=== PATIENT | female | born 1985 | race American Indian/Alaskan Native ===

== ENCOUNTER 2017-01-07 05:19 | Inpatient (IN) | payer MEDICAID ==
[2017-01-07] MEDS ORDERED: SUBLIMAZE IV PRN (06:24)
[2017-01-07] MEDS ORDERED: MINERAL OIL PO PRN (06:24)
[2017-01-07] MEDS ORDERED: ePHEDrine SULFATE IV PRN (06:24)
[2017-01-07] MEDS ORDERED: BRETHINE IVP PRN (06:24)
[2017-01-07] MEDS ORDERED: XYLOCAINE 2% INFILTRATI ONE (06:24)
[2017-01-07] MEDS ORDERED: BRETHINE SUB-Q PRN (06:24)
[2017-01-07] MEDS ORDERED: ZOFRAN IV PRN (06:24)
[2017-01-07] MEDS ORDERED: LACTATED RINGERS 1,000 ML ONE (06:29)
--- NOTE | 2017-01-07 06:35 | History and Physical Report ---
History of Present Illness Date of examination: 01/07/17 ( in active labor) History of present illness: EDC Confirmation: 01/18/2017 Gestational Age: 6 1/7 weeks Past History : 3 Term Births: 2 Premature Births: 0 Living Children: 2 Para: 2 Mult. Births: 0 Prev : 0 Prev. attempt? 0 Aborta: 0 Elect. Ab: 0 Spont. Ab: 0 Ectopics: 0 # 1 Delivery date: 10/27/2006 Weeks Gestation: 40 labor: no Delivery type: Hours of labor: 12 Anesthesia type: epidural Delivery location: [facility] Infant Sex: Male weight: 8-10 Name: Vladimir # 2 Delivery date: 07/20/2015 Weeks Gestation: 39+0 labor: no Delivery type: Vaginal Hours of labor: 8 Anesthesia type: epidural Delivery location: [facility] Sex: male weight: 9.19 Name: Ney Comments: none Past Medical History: Reviewed history from 01/03/2015 and no changes required: Negative Past Medical History Past Surgical History: Reviewed history from 01/03/2015 and no changes required: Tonsillectomy Family History Summary: Reviewed history and no changes required: 06/10/2016 Daughter (biol.) - Has Family History of Hypertension - Please disregard relationships chosen - Entered On: 01/03/2015 Daughter (biol.) - Has No Family History of Breast Cancer - Please disregard relationships chosen - Entered On: 01/03/2015 Daughter (biol.) - Has No Family History of Colon Cancer - Please disregard relationships chosen - Entered On: 01/03/2015 Daughter (biol.) - Has No Family History of Diabetes - Please disregard relationships chosen - Entered On: 01/03/2015 Daughter (biol.) - Has No Family History of Ovarvian Cancer - Please disregard relationships chosen - Entered On: 01/03/2015 Social History: unemployed Patient is Risk Factors: Smoked Tobacco Use: Never smoker Passive smoke exposure: no Drug use: no HIV high-risk behavior: low risk Alcohol use: no Past Medical History Abnormal PAP: positive Uterine Anomaly: positive, myomas Social Hx: unemployed Patient is Infection History Hx of STD: chlamydia HIV Risk Eval: low risk Hepatitis B Risk Eval: low risk Personal hx. of genital herpes: no Partner hx. of genital herpes: no Genetic History Congenital Heart Defect: Mom: no Dad: no Jay Disease: Mom: no Dad: no Thalassemia Mom: no Dad: no Neural Tube Defect Mom: no Dad: no Down's Syndrome Mom: no Dad: no Abimael-Sachs Mom: no Dad: no Sickle Cell Disease/Trait Mom: no Dad: no Hemophilia Mom: no Dad: no Muscular Dystrophy Mom: no Dad: no Cystic Fibrosis Mom: no Dad: no Justino Chorea Mom: no Dad: no Mental Retardation Mom: no Dad: no Fragile X Mom: no Dad: no Other Genetic/Chromosomal Disorder Mom: no Dad: no Child w/other defect Mom: no Dad: no Enviromental Exposures Xray Exposure: no Medication, drug, or alcohol use since LMP: no Chemical/Other Exposure: no Exposure to Cat Liter: no Hx of Parvovirus (Fifth Disease): no Active Medications (reviewed today): VITAMINS () Current Allergies (reviewed today): No known allergies Laboratory Results Date/Time Collected: 05/26/2016 Routine Urinalysis Color: yellow Appearance: clear Leukocytes: negative Nitrite: negative Urobilinogen: negative Protein: negative Blood: negative Ketone: negative Bilirubin: negative Glucose: negative Urine HCG: positive Review of Systems General Complains of fatigue. Denies fever, chills, sweats, anorexia, weakness, malaise, weight loss and sleep disorder. Complains of pelvic pain. Denies vaginal discharge, incontinence, dysuria, hematuria, urinary frequency, amenorrhea, menorrhagia, abnormal vaginal bleeding, genital sores, decreased libido, painful periods, painful sex, urinary urgency, hot flashes, vaginal dryness, vaginal itching and vaginal odor. CV Denies chest pains, palpitations, syncope, dyspnea on exertion, orthopnea, PND and peripheral edema. Resp Denies cough, dyspnea at rest, excessive sputum, hemoptysis, wheezing and pleurisy. GI Denies nausea, vomiting, diarrhea, constipation, change in bowel habits, abdominal pain, melena, hematochezia, jaundice, gas/bloating, indigestion/ heartburn, dysphagia and odynophagia. Breast Complains of breast pain. Denies left breast lump, right breast lump, nipple discharge, bloody discharge from nipple, abnormal mammogram and breast enlargement. Psych Denies depression, anxiety, irritability and mood swings. PHYSICAL EXAM HEENT: normocephalic, no lesions or deformities .Tatoo(s) are present Neck/Thyroid: supple, thyroid normal Skin no abnormal lesions or rashes .Tatoo(s) are present Chest: respiratory effort normal, lungs clear to auscultation Breasts: normal without skin changes or masses .Tatoo(s) are present CV: regular, normal S1-S2, no murmur, no rub, no gallop Abdomen: normal bowel sounds; soft, nontender .Tatoo(s) are present Musculoskeletal: grossly normal ROM in joints, no joint tenderness or muscle weakness Neuro: no gross anomalities Extremities: no clubbing, cyanosis, or edema .Tatoo(s) are present 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 No evidence of cystocele or rectocele. Cervix: normal appearance, no lesions, no discharge Uterus: enlarged uterus 8 - 10 weeks size Adnexae: no masses or tenderness Rectovaginal: exam defered Past History - Obstetrical History Expected Date of Delivery: 01/18/17 Actual Gestation: 38 Week(s) 3 Day(s) : 3 Para: 2 Hx # Term Pregnancies: 2 Number of Living Children: 2 Medications and Allergies Allergies Allergy/AdvReac Type Severity Reaction Status Date / Time No Known Allergies Allergy Verified 07/20/15 05:16 Home Medications Medication Instructions Recorded Confirmed Last Taken Type Neomy/Polymyx B/Hc Otic Susp 4 drops AD TID #1 bottle 04/28/15 07/22/15 Unknown Rx [Cortisporin (Otic) Susp] Lidocain2.5%/Prilocai2.5% [Emla] 5 gm TP ONCE PRN #1 tube 07/21/15 Unknown Rx Active Meds: Active Medications Ephedrine Sulfate (Ephedrine Sulfate) 10 mg IV Q2M PRN PRN Reason: Hypotension Stop: 01/07/17 06:29 Fentanyl (Sublimaze) 100 mcg IV Q2H PRN PRN Reason: Labor Pain Lactated Ringer's (Lactated Ringers) 1,000 mls @ 125 mls/hr IV DIRECT WILSON Oxytocin/Sodium Chloride (Pitocin/Ns 20 Unit/1000ml Drip) 20 units in 1,000 mls @ 125 mls/hr IV DIRECT WILSON Oxytocin/Sodium Chloride (Pitocin/Ns 30 Unit/500ml) 30 units in 500 mls @ 4 mls /hr IV TITR WILSON PRN Reason: Protocol Lidocaine (Xylocaine 2%) 20 ml INFILTRATI ONCE ONE Stop: 01/07/17 06:25 Mineral Oil (Mineral Oil) 30 ml PO QHS PRN PRN Reason: Constipation Ondansetron HCl (Zofran) 4 mg IV Q8H PRN PRN Reason: Nausea And Vomiting Terbutaline Sulfate (Brethine) 0.25 mg SUB-Q ONCE PRN PRN Reason: Hyperstimulation/Hypertonicity Stop: 01/07/17 06:25 Terbutaline Sulfate (Brethine) 0.25 mg IVP ONCE PRN PRN Reason: Hyperstimulation/Hypertonicity Stop: 01/07/17 06:25 - Vital Signs Vital signs: Vital Signs Pulse Pulse Ox 92 H 98 01/07/17 05:43 01/07/17 05:43 Temp Pulse Resp BP Pulse Ox 87 123/78 92 01/07/17 06:01 01/07/17 05:45 01/07/17 06:01 - Physical Exam Breasts: Positive: deferred Cardiovascular: Regular rate, Normal S1, Normal S2 Lungs: Positive: Normal air movement Abdomen: Positive: normal appearance, soft, normal bowel sounds. Negative: distention, tenderness Genitourinary (Female): Positive: normal perenium Vulva: both: normal Vagina: Positive: normal moisture. Negative: discharge Cervix: Negative: lesion, discharge Uterus: Positive: normal size, normal contour Adnexa: both: normal Anus/Rectum: Positive: normal perianal skin, heme negative. Negative: rectal mass, hemorrhoids Extremities: Positive: edema Deep Tendon Reflex Grade: Normal +2 - Obstetrical FHR: category 1 Uterine Contraction Monitor Mode: External Uterine Contraction Pattern: Regular Uterine Contraction Intensity: Moderate Results All other labs normal Strep Gp B CLAUDETTE Negative HBsAg Screen Negative Negative *1 Rubella Antibodies, IgG 2.44 index Immune >0.99 *2 Non-immune <0.90 Equivocal 0.90 - 0.99 Immune >0.99 ABO Grouping B *3 Rh Factor Positive *4 Please note: Prior records for this patient's ABO / Rh type are not available for additional verification. Antibody Screen Negative Negative *5 RPR Non Reactive Non Reactive *6 WBC 6.8 x10E3/uL 3.4-10.8 *7 RBC 4.32 x10E6/uL 3.77-5.28 *8 Hemoglobin 11.8 g/dL 11.1-15.9 *9 Hematocrit 38.3 % 34.0-46.6 *10 MCV 89 fL 79-97 *11 MCH 27.3 pg 26.6-33.0 *12 MCHC [L] 30.8 g/dL 31.5-35.7 *13 RDW 14.1 % 12.3-15.4 *14 Platelets 347 x10E3/uL 150-379 *15 Neutrophils 64 % *16 Lymphs 26 % *17 Monocytes 8 % *18 Eos 2 % *19 Basos 0 % *20 ! Immature Cells <No Reported Value> *21 Neutrophils (Absolute) 4.3 x10E3/uL 1.4-7.0 *22 Lymphs (Absolute) 1.8 x10E3/uL 0.7-3.1 *23 Monocytes(Absolute) 0.5 x10E3/uL 0.1-0.9 *24 Eos (Absolute) 0.1 x10E3/uL 0.0-0.4 *25 Baso (Absolute) 0.0 x10E3/uL 0.0-0.2 *26 ! Immature Granulocytes 0 % *27 ! Immature Grans (Abs) 0.0 x10E3/uL 0.0-0.1 *28 ! NRBC <No Reported Value> *29 Hematology Comments: <No Reported Value> *30 Tests: (2) Cystic Fibrosis Profile (637258) ! CF, Screen Comment: *31 RESULTS: Negative for 32 mutations analyzed Tests: (3) HB Solu + Rflx Fra (742707) Hemoglobin (Hgb) Solubility Negative Negative *33 Tests: (4) Panel 772285 (800822) HIV Screen 4th Generation wRfx Non Reactive Non Reactive *34 Tests: (5) HCV Ab w/Rflx to Verification ([id number]) ! HCV Ab <0.1 s/co ratio 0.0-0.9 *35 Tests: (6) Comment: ([id number]) ! Comment: SPRCS *36 Non reactive HCV antibody screen is consistent with no HCV infection, unless recent infection is suspected or other evidence exists to indicate HCV infection. Assessment and Plan 31yo @ 38 weeks in active labor GDM Insulin control; Polyhydramnios; GBS negative. Orders in EMR. Anticipate delivery.
--- NOTE | 2017-01-07 06:42 | Progress Note ---
Assessment and Plan anticipate delivery Subjective - Subjective Date of service: 01/07/17 Interval history: EDC Confirmation: 01/18/2017 Gestational Age: 6 1/7 weeks Past History : 3 Term Births: 2 Premature Births: 0 Living Children: 2 Para: 2 Mult. Births: 0 Prev : 0 Prev. attempt? 0 Aborta: 0 Elect. Ab: 0 Spont. Ab: 0 Ectopics: 0 # 1 Delivery date: 10/27/2006 Weeks Gestation: 40 labor: no Delivery type: Hours of labor: 12 Anesthesia type: epidural Delivery location: [facility] Sex: Male weight: 8-10 Name: Vladimir # 2 Delivery date: 07/20/2015 Weeks Gestation: 39+0 labor: no Delivery type: Vaginal Hours of labor: 8 Anesthesia type: epidural Delivery location: [facility] Infant Sex: male weight: 9.19 Name: Ney Comments: none Past Medical History: Reviewed history from 01/03/2015 and no changes required: Negative Past Medical History Past Surgical History: Reviewed history from 01/03/2015 and no changes required: Tonsillectomy Family History Summary: Reviewed history and no changes required: 06/10/2016 Daughter (biol.) - Has Family History of Hypertension - Please disregard relationships chosen - Entered On: 01/03/2015 Daughter (biol.) - Has No Family History of Breast Cancer - Please disregard relationships chosen - Entered On: 01/03/2015 Daughter (biol.) - Has No Family History of Colon Cancer - Please disregard relationships chosen - Entered On: 01/03/2015 Daughter (biol.) - Has No Family History of Diabetes - Please disregard relationships chosen - Entered On: 01/03/2015 Daughter (biol.) - Has No Family History of Ovarvian Cancer - Please disregard relationships chosen - Entered On: 01/03/2015 Social History: unemployed Patient is Risk Factors: Smoked Tobacco Use: Never smoker Passive smoke exposure: no Drug use: no HIV high-risk behavior: low risk Alcohol use: no Past Medical History Abnormal PAP: positive Uterine Anomaly: positive, myomas Social Hx: unemployed Patient is Infection History Hx of STD: chlamydia HIV Risk Eval: low risk Hepatitis B Risk Eval: low risk Personal hx. of genital herpes: no Partner hx. of genital herpes: no Genetic History Congenital Heart Defect: Mom: no Dad: no Jay Disease: Mom: no Dad: no Thalassemia Mom: no Dad: no Neural Tube Defect Mom: no Dad: no Down's Syndrome Mom: no Dad: no Abimael-Sachs Mom: no Dad: no Sickle Cell Disease/Trait Mom: no Dad: no Hemophilia Mom: no Dad: no Muscular Dystrophy Mom: no Dad: no Cystic Fibrosis Mom: no Dad: no Justino Chorea Mom: no Dad: no Mental Retardation Mom: no Dad: no Fragile X Mom: no Dad: no Other Genetic/Chromosomal Disorder Mom: no Dad: no Child w/other defect Mom: no Dad: no Enviromental Exposures Xray Exposure: no Medication, drug, or alcohol use since LMP: no Chemical/Other Exposure: no Exposure to Cat Liter: no Hx of Parvovirus (Fifth Disease): no Active Medications (reviewed today): VITAMINS () Current Allergies (reviewed today): No known allergies Laboratory Results Date/Time Collected: 05/26/2016 Routine Urinalysis Color: yellow Appearance: clear Leukocytes: negative Nitrite: negative Urobilinogen: negative Protein: negative Blood: negative Ketone: negative Bilirubin: negative Glucose: negative Urine HCG: positive Review of Systems General Complains of fatigue. Denies fever, chills, sweats, anorexia, weakness, malaise, weight loss and sleep disorder. Complains of pelvic pain. Denies vaginal discharge, incontinence, dysuria, hematuria, urinary frequency, amenorrhea, menorrhagia, abnormal vaginal bleeding, genital sores, decreased libido, painful periods, painful sex, urinary urgency, hot flashes, vaginal dryness, vaginal itching and vaginal odor. CV Denies chest pains, palpitations, syncope, dyspnea on exertion, orthopnea, PND and peripheral edema. Resp Denies cough, dyspnea at rest, excessive sputum, hemoptysis, wheezing and pleurisy. GI Denies nausea, vomiting, diarrhea, constipation, change in bowel habits, abdominal pain, melena, hematochezia, jaundice, gas/bloating, indigestion/ heartburn, dysphagia and odynophagia. Breast Complains of breast pain. Denies left breast lump, right breast lump, nipple discharge, bloody discharge from nipple, abnormal mammogram and breast enlargement. Psych Denies depression, anxiety, irritability and mood swings. PHYSICAL EXAM HEENT: normocephalic, no lesions or deformities .Tatoo(s) are present Neck/Thyroid: supple, thyroid normal Skin no abnormal lesions or rashes .Tatoo(s) are present Chest: respiratory effort normal, lungs clear to auscultation Breasts: normal without skin changes or masses .Tatoo(s) are present CV: regular, normal S1-S2, no murmur, no rub, no gallop Abdomen: normal bowel sounds; soft, nontender .Tatoo(s) are present Musculoskeletal: grossly normal ROM in joints, no joint tenderness or muscle weakness Neuro: no gross anomalities Extremities: no clubbing, cyanosis, or edema .Tatoo(s) are present 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 No evidence of cystocele or rectocele. Cervix: normal appearance, no lesions, no discharge Uterus: enlarged uterus 8 - 10 weeks size Adnexae: no masses or tenderness Rectovaginal: exam defered Patient reports: movement normal Objective - Vital Signs Vital Signs: Vital Signs - 12hr 01/07/17 01/07/17 01/07/17 05:43 05:45 05:48 Pulse Rate 92 H 80 80 Blood Pressure 123/78 O2 Sat by Pulse 98 98 Oximetry 01/07/17 01/07/17 01/07/17 05:53 05:54 05:58 Pulse Rate 79 85 92 H Blood Pressure O2 Sat by Pulse 96 90 100 Oximetry 01/07/17 01/07/17 06:01 06:36 Pulse Rate 87 88 Blood Pressure 130/76 O2 Sat by Pulse 92 Oximetry - Exam Cardiovascular: Regular rate Lungs: Normal air movement Abdomen: Present: normal appearance, soft. Absent: distention, tenderness Uterus: Present: normal FHR: auscultation normal, category 1 Uterine Contraction Monitor Mode: External Cervical Dilatation: 9 (BBOW) Cervical Effacement Percentage: 100 station: -2 Uterine Contraction Pattern: Regular Uterine Tone Measurement Phase: Resting Uterine Contraction Intensity: Strong/Firm Extremities: edema Deep Tendon Reflex Grade: Normal +2
[2017-01-07] MEDS ORDERED: PITOCin/NS 20 UNIT/1000ML DRIP 20 UNITS/1,000 ML BAG IV SCH (07:00)
[2017-01-07] MEDS ORDERED: PITOCin/NS 30 UNIT/500ML 30 UNITS/500 ML BAG IV SCH (07:00)
[2017-01-07] MEDS ORDERED: LACTATED RINGERS 1,000 ML IV SCH (07:00)
[2017-01-07 07:11] LABS: Hematocrit 36.7 % (30.3-42.9); Hemoglobin 12.5 gm/dl (10.1-14.3); Mean Corpuscular HGB Conc 34 % (30-34); Mean Corpuscular Hemoglobin 30 pg (28-32); Mean Corpuscular Volume 87 fl (79-97); Platelet Count 207 K/mm3 (140-440); Red Blood Count 4.21 M/mm3 (3.65-5.03); Red Cell Distribution Width 14.2 % (13.2-15.2); White Blood Count 8.6 K/mm3 (4.5-11.0)
--- NOTE | 2017-01-07 08:20 | Procedure Note ---
OB Delivery Note - Delivery Date of Delivery: 01/07/17 Welder: KIEL DIANA Estimated blood loss: 300cc - Vaginal Delivery presentation: vertex Delivery position: OA Intrapartum events: hydramnios, other(please specify) (GDM insulin dependent) Delivery induction: none Delivery monitor: external FHT, external uterine Route of delivery: Delivery placenta: spontaneous Delivery cord: 3 umbilical vessels Episiotomy: none Delivery laceration: none Anesthesia: intravenous Delivery comments: SROM @ 10cm Large amt of fluid live born female over intact perineum intact. Baby to mom's abdomen Large amt amniotic fluid after delivery of baby. Placenta and membrane del complete and intact, 3 vessel cord. Pitocin IVFs. 8/9, EBL 300, Wgt 7-2. Mom and baby remain LDR stable - Infant A at 1 minute: 8 at 5 minutes: 9 Infant Gender: Female (wgt 7-2)
[2017-01-07] MEDS ORDERED: TUCKS PAD TP PRN (09:00)
[2017-01-07] MEDS ORDERED: BENADRYL PO PRN (09:00)
[2017-01-07] MEDS ORDERED: LANSINOH TP PRN (09:00)
[2017-01-07] MEDS ORDERED: TYLENOL PO PRN (09:00)
[2017-01-07] MEDS ORDERED: NORCO 5/325 PO PRN (09:30)
[2017-01-07] MEDS ORDERED: PHENERGAN PO PRN (10:00)
[2017-01-07] MEDS ORDERED: DULCOLAX PR PRN (10:00)
[2017-01-07] MEDS ORDERED: SODIUM CHLORIDE FLUSH SYRINGE 10 ML IV PRN (10:00)
[2017-01-07] MEDS: COLACE PO SCH ×2 (10:54→23:50)
[2017-01-07] MEDS: MOTRIN PO SCH ×3 (10:55→23:50)
[2017-01-07] MEDS: PRENATAL VITAMIN PO SCH (10:56)
[2017-01-07 17:28] LABS: Hematocrit 31.5 % (30.3-42.9); Hemoglobin 10.6 gm/dl (10.1-14.3); Mean Corpuscular HGB Conc 34 % (30-34); Mean Corpuscular Hemoglobin 29 pg (28-32); Mean Corpuscular Volume 88 fl (79-97); Platelet Count 181 K/mm3 (140-440); Red Blood Count 3.61 M/mm3 (3.65-5.03); Red Cell Distribution Width 14.1 % (13.2-15.2); White Blood Count 11.7 K/mm3 (4.5-11.0)
[2017-01-07] MEDS ORDERED: MILK OF MAGNESIA PO PRN (22:00)
[2017-01-08] MEDS: MOTRIN PO SCH ×3 (05:51→18:28)
[2017-01-08] MEDS ORDERED: BOOSTRIX IM ONE (06:00)
--- NOTE | 2017-01-08 08:02 | Progress Note ---
Assessment and Plan patient doing well, no complaints. desires d/c home today. Janusz rebollar, VSSAF , H&H 10.6/31.5, without concern. Plans on POP for contraception. plan for d/c home w/ routine f/u in office. - Patient Problems (1) Spontaneous vaginal delivery Current Visit: Yes Status: Acute Subjective - Subjective Date of service: 01/08/17 Principal diagnosis: day #1 s/p Patient reports: appetite normal, voiding normally, pain well controlled, ambulating normally, no dizzy ambulation, no nauseated Rosenberg: doing well, nursing well Objective - Vital Signs Latest vital signs: Vital Signs Temp Pulse Resp BP BP 01/08/17 00:50 98 F 87 18 129/63 01/07/17 21:38 98.5 F 87 20 103/50 01/07/17 17:41 20 01/07/17 16:30 98.9 F 73 20 106/62 01/07/17 13:21 98 F 82 20 120/63 01/07/17 10:55 20 01/07/17 09:50 98.7 F 92 H 118/61 01/07/17 08:48 97.8 F 78 18 129/73 129/73 01/07/17 08:33 90 18 128/73 128/73 01/07/17 08:18 76 18 135/75 135/75 01/07/17 08:04 88 120/64 01/07/17 08:01 88 18 120/84 Intake and Output 01/07/17 01/08/17 01/08/17 23:59 07:59 15:59 Intake Total 360 360 Balance 360 360 Intake: Oral 120 Intake, Free Water 240 360 Other: Total, Intake Amount 120 # Voids Void 1 - Exam Breasts: Present: normal, Cardiovascular: Present: Regular rate Lungs: Present: Clear to auscultation, Normal air movement Abdomen: Present: normal appearance, soft, normal bowel sounds Vulva: both: normal Uterus: Present: normal, firm, fundal height at umbilicus Extremities: Present: normal - Labs Labs: Abnormal lab results 01/07/17 Range/Units 17:10 WBC 11.7 H (4.5-11.0) K/mm3 RBC 3.61 L (3.65-5.03) M/mm3
--- NOTE | 2017-01-08 08:07 | Discharge Summary ---
Providers - Providers Date of Admission: 01/07/17 06:28 Date of discharge: 01/08/17 (desires d/c home) Attending physician: ELIZABETH GREGORIO Primary care physician: ELIZABETH GREGORIO Hospitalization Reason for admission: active labor Delivery: Episiotomy: none Laceration: none Other procedures: none complications: none Discharge diagnosis: IUP at term delivered Mora baby: female Hospital course: uncomplicated vaginal delivery Condition at discharge: Good Disposition: DC-01 TO HOME OR SELFCARE - Discharge Diagnoses (1) Spontaneous vaginal delivery Status: Acute Plan - Provider Discharge Summary Activity: routine, no sex for 6 weeks, no heavy lifting 4 weeks, no strenuous exercise Diet: routine Instructions: routine Additional instructions: [] Smoking cessation referral if applicable(refer to patient education folder for contact #) [] Refer to [facility]'s [facility] Booklet Call your doctor immediately for: * Fever > 100.5 * Heavy vaginal bleeding ( >1 pad per hour) * Severe persistent headache * Shortness of breath * Reddened, hot, painful area to leg or breast * Drainage or odor from incision. * Keep incision clean and dry at all times and follow doctor's instructions regarding bathing/showering - Follow up plan Follow up: ELIZABETH GREGORIO MD [Primary Care Provider] - 6 Weeks (Congratulations! Please call [phone] to schedule your visit for 6 weeks along with a 2hour diabetes test. Call for any questions or concerns. )
[2017-01-08] MEDS ORDERED: M-M-R II VACCINE SUB-Q ONE (11:00)
[2017-01-08] MEDS: PRENATAL VITAMIN PO SCH (11:42)
[2017-01-08] MEDS: COLACE PO SCH ×2 (11:42→22:17)
[2017-01-09] MEDS: MOTRIN PO SCH ×2 (00:40→06:13)
[2017-01-09 11:00] VITALS: BP 122/67
== END 2017-01-09 12:30 | disposition home or self-care (01) | DRG 775 ==
LOC: TRG 05:19 → LD 06:28 → OB 10:10
PROVIDERS: ADMIT Obstetrics & Gynecology; ATTEND Obstetrics & Gynecology
PROC: 10E0XZZ Delivery of Products of Conception, External Approach (ICD-10-PCS; principal; 2017-01-07)
DX: O24.424 Gestational diabetes mellitus in childbirth, insulin controlled (principal); Z37.0 Single live birth; Z3A.38 38 weeks gestation of pregnancy; O40.3XX0 Polyhydramnios, third trimester, not applicable or unspecified
CPT/HCPCS: 36415; 82962; 85027; 86592; 86850; 86900; 86901; 88307; 90471; 90715; 99211; A6250; G0463; J2590; J3010; J7120